=== PATIENT | male | born 1980 ===

== ENCOUNTER → 2018-11-27 | Outpatient (CLI) | payer OTHER | LOC: MHCPAIN 08:19 | DX: G89.29 Other chronic pain (principal); M47.817 Spondylosis without myelopathy or radiculopathy, lumbosacral region; M53.3 Sacrococcygeal disorders, not elsewhere classified | CPT/HCPCS: G0463 ==

== ENCOUNTER → 2018-12-20 | Outpatient (CLI) | payer OTHER | LOC: MHCPAIN 11:46 | DX: M47.817 Spondylosis without myelopathy or radiculopathy, lumbosacral region (principal); M54.16 Radiculopathy, lumbar region ==

== ENCOUNTER → 2018-12-26 | Outpatient (CLI) | payer OTHER | LOC: MHCPAIN 14:36 | DX: G89.29 Other chronic pain (principal); M47.817 Spondylosis without myelopathy or radiculopathy, lumbosacral region; M53.3 Sacrococcygeal disorders, not elsewhere classified | CPT/HCPCS: G0463 ==

== ENCOUNTER → 2019-01-03 | Outpatient (CLI) | payer OTHER | LOC: MHCPAIN 14:11 | DX: M47.817 Spondylosis without myelopathy or radiculopathy, lumbosacral region (principal); M54.16 Radiculopathy, lumbar region ==